=== PATIENT | female | born 1945 | race African-American/Black ===

== ENCOUNTER 2017-12-14 11:02 | Observation (INO) | payer MEDICARE ==
[2017-12-14 11:38] LABS: #Eosinphils 0.3 thou/uL (0.0-0.7); #Lymphocytes 1.9 thou/uL (1.20-3.40); #Monocytes 0.5 thou/uL (0.11-0.59); #Neutrophils 8.3 thou/uL (1.40-6.50); %Basophils 0.4 % (0.0-1.0); %Eosinophils 2.3 % (0.0-10.0); %Lymphocytes 17.3 % (21.0-51.0); %Monocytes 4.2 % (0.0-10.0); %Neutrophils 75.9 % (42.0-75.0); Hemoglobin 14.5 g/dL (12.0-16.0); Mean Corpuscular HGB CONC 33.8 g/dL (32.0-36.0); Mean Corpuscular Hemoglobin 29.9 pg (27.0-31.0); Mean Corpuscular Volume 88.4 fl (81.0-99.0); Mean Platelet Volume 8.5 fL (7.4-10.4); Platelet Count 251 thou/uL (130-400); RBC Distribution Width 13.2 % (11.5-14.5); Red Blood Cell (RBC) Count 4.84 mill/uL (4.20-5.40); White Blood Cell (WBC) Count 10.9 thou/uL (4.8-10.8)
[2017-12-14 11:56] LABS: ALT (SGPT) 16 U/L (8-55); AST (SGOT) 18 U/L (5-34); Albumin 4.5 g/dL (3.4-4.8); Alkaline Phosphatase 100 U/L (40-150); Anion Gap 15 mmol/L (10-20); BUN (Urea Nitrogen) 18 mg/dL (9.8-20.1); Bilirubin, Total 0.6 mg/dL (0.2-1.2); CK (CPK) 127 U/L (29-168); Calc. Creatinine Clearance 0 mL/min (70-130); Calcium 10.2 mg/dL (7.8-10.44); Carbon Dioxide 22 mmol/L (23-31); Chloride 104 mmol/L (98-107); Estimated GFR-MDRD 56; Globulin 4.3 g/dL (2.4-3.5); Glucose 121 mg/dL (83-110); Potassium 4.4 mmol/L (3.5-5.1); Protein, Total 8.8 g/dL (6.0-8.3); Sodium 137 mmol/L (136-145)
[2017-12-14 12:38] LABS: CKMB 1.1 ng/mL (0-6.6); Troponin I Less than 0.010 ng/mL (< 0.028)
[2017-12-14 12:43] LABS: Bilirubin Negative (Negative); Blood, Urine Negative (Negative); Clarity CLEAR (Clear); Glucose, Urine (Dipstick) Negative (Negative); Leukocyte Negative (Negative); Nitrite Negative (Negative); Protein, Urine (Dipstick) 100 mg/dL (Neg-Trace); Specific Gravity, Urine 1.012 (1.002-1.036); Urobilinogen 0.2 mg/dL (0.2-1.0); pH, Urine 6.5 (5.0-9.0)
--- NOTE | 2017-12-14 12:44 | RAD ---
RADIOGRAPH CHEST 1 VIEW: HISTORY: A 72-year-old female with weakness, nausea, and dizziness. FINDINGS: There is no air space density, pulmonary edema, or pneumothorax. The lateral costophrenic angles are sharp. IMPRESSION: No acute pulmonary findings. indio [] POS: MARGIE
[2017-12-14 12:48] LABS: Bacteria/HPF None Seen HPF (None Seen); Hyaline Casts/LPF 0-3 HYALINE CAST LPF (0-3 Hyaline); RBC/HPF 0-3 HPF (0-3); Squamous Epithelial 0-3 HPF (0-3); WBC/HPF None Seen HPF (0-3)
--- NOTE | 2017-12-14 12:55 | CT ---
CT BRAIN NONCONTRAST: HISTORY: A 72-year-old female with dizziness. FINDINGS: There is no midline shift or any other mass effect. There is no evidence of acute intracranial hemor rhage, large cortical infarct, obstructive hydrocephalus, or extraaxial fluid collection. The calvar ium is intact. IMPRESSION: No acute intracranial findings. indio [] POS: MARGIE
[2017-12-14] MEDS ORDERED: Meclizine HCl 25 MG TAB ONE (13:30)
--- NOTE | 2017-12-14 13:56 | RAD ---
THREE VIEWS OF THE RIGHT SHOULDER: INDICATION: Right AC joint tenderness and pain along the superior portions of the right shoulder. FINDINGS: There is mild AC joint arthrosis. No acute fracture is evident. Glenohumeral alignment is normal. Visualized right lung is clear. IMPRESSION: No acute osseous abnormality. POS: DYLAN
--- NOTE | 2017-12-14 14:16 | HP ---
PRIMARY CARE PHYSICIAN: Lon Mcghee M.D. REASON FOR ADMISSION: Dizziness/vertigo. HISTORY OF PRESENT ILLNESS: A 72-year-old -[place] female who has history of hypertension an d dyslipidemia who presented to emergency room with a complaint of dizziness. The patient reports th at for last 2 or 3 days, she is experiencing dizzy spell. She is not getting confidence in walking b ecause of fear of fall. The patient feels that everything surroundings spinning that is getting wors e with the position of head. She denies any tinnitus. She denies any ear pain. She denies any rece nt upper respiratory infection. She denies any fever or chills. She denies any palpitation. She di d not have any real syncope at this time, but she reports that on 09/27/2017, she was feeling dizzine ss and had episode of syncope and that is why she went to [facility] and she had one month monito ring, which was unremarkable. The patient intermittently gets dizzy spells since then. She denies a ny diplopia or blurred vision. She denies any chest pain, palpitations, orthopnea, PND or leg swelli ng. She does have arthritic pain. She denies any peripheral tingling and numbness sensation. Today in the emergency room, patient was exactly having similar symptoms. Patient was given IV fluid , but her symptoms did not improve. We are admitting this patient for observation to rule out any po sterior circulation, cerebrovascular accident or any cardiac problem. ALLERGIES: No known drug allergy. CURRENT HOME MEDICATIONS: Albuterol 2 puffs q.6 hourly p.r.n., allopurinol 100 mg p.o. daily, amlodi pine 10 mg p.o. daily, Lipitor 40 mg p.o. daily, losartan 50 mg p.o. daily, oxybutynin 5 mg twice kishore ly, Tylenol p.r.n. REVIEW OF SYSTEMS: The following complete review of systems was negative, unless otherwise mentioned in the HPI or below: Constitutional: Weight loss or gain, ability to conduct usual activities. Skin: Rash, itching. Eyes: Double vision, pain. ENT/Mouth: Nose bleeding, neck stiffness, pain, tenderness. Cardiovascular: Palpitations, dyspnea on exertion, orthopnea. Respiratory: Shortness of breath, wheezing, cough, hemoptysis, fever or night sweats. Gastrointestinal: Poor appetite, abdominal pain, heartburn, nausea, vomiting, constipation, or diarr hea. Genitourinary: Urgency, frequency, dysuria, nocturia. Musculoskeletal: Pain, swelling. Neurologic/Psychiatric: Anxiety, depression. Allergy/Immunologic: Skin rash, bleeding tendency. Please see my HPI for pertinent positive and negative. All other review of systems reviewed and nega tive except as mentioned in the HPI. PAST MEDICAL HISTORY: Hypertension, dyslipidemia, gout, asthma, overactive bladder. PAST SURGICAL HISTORY: Reviewed and negative. PAST PSYCHIATRIC HISTORY: Reviewed and negative. FAMILY HISTORY: No strong family history of premature coronary artery disease, stroke or cancer. EMERGENCY ROOM COURSE: Patient is given IV fluid. SOCIAL HISTORY: Patient is . She lives at home with her . No history of tobacco, alc ohol or illicit drug abuse. PHYSICAL EXAMINATION: VITAL SIGNS: On arrival, blood pressure 194/90, pulse 69, respiratory rate 16, temperature 98.1, sat uration 97% on room air, and weight 104.3 kilograms. GENERAL: The patient is currently alert, awake, no obvious acute distress. HEAD: Normocephalic, atraumatic. EYES: Pupils round, reactive to light. Extraocular muscle intact. ENT: Oropharynx within normal limits. Moist mucous membranes. No oral lesion, no pharyngeal erythe ma, no exudate. NECK: Supple, no JVD, no thyromegaly, no carotid bruit, no jugular venous distention. LUNGS: Clear to auscultation without any rhonchi or rales. CARDIAC: S1 and S2 regular without any murmur. ABDOMEN: Soft, bowel sounds present, nontender, nondistended. No organomegaly, no mass, no suprapub ic tenderness. BACK: Examination unremarkable, no CVA tenderness. EXTREMITIES: Upper extremity passive movements of all joints are normal. Lower extremities: No toma ma. Good peripheral pulsation. SKIN: No skin rash. HEMATOLOGICAL SYSTEM: No lymphadenopathy. PSYCHIATRIC: Normal affect. NEUROLOGIC: Patient is alert and oriented x3. Cranial nerves II-XII intact. Motor and sensation wi thin normal limit. No cerebellar sign. Plantar bilateral flexor. Gait unable to assess. SIGNIFICANT LABORATORY DATA AND IMAGING DATA: 1. CBC: WBC 10.9, hemoglobin 14.5, platelet 251. 2. BMP: Sodium 137, potassium 4.4, chloride 104, carbon dioxide 22, anion gap 15, BUN 18, creatinin e 1.16, glucose 121, calcium 10.2. 3. LFT: AST 18, ALT 16, alkaline phosphatase 100, albumin 4.5, CK 127, CK-MB 1.1, troponin I less t schaffer 0.010. Urinalysis normal. 4. Chest x-ray based on my review, no acute cardiopulmonary process. 5. CT brain based on my review, no acute intracranial process. 6. Shoulder x-ray based on my review, arthritic changes. ASSESSMENT AND PLAN/IMPRESSION: 1. Dizziness/vertigo. Differential diagnosis is benign positional vertigo unlikely to be vestibular labyrinthitis, most likely related with peripheral etiology, but central etiology cannot be entirely excluded. We need to also rule out any cardiac arrhythmia as a part of workup for dizziness. We wi ll check orthostatic vitals. Most likely, this patient hypertension which is pretty much uncontrolle d that also contributes to her symptoms. We decided to keep this patient in hospital for observation . Symptomatically, we will treat her with Antivert. We will do cardiac monitoring for 24 hours. We will obtain MRI brain to rule out any posterior circulation territory infarct. We will continue asp irin 325 mg p.o. daily, amlodipine 10 mg p.o. daily, Lipitor 20 mg p.o. at bedtime, losartan 50 mg p. o. daily. We will use hydralazine on p.r.n. basis for blood pressure control. We will also consult PT for weight assessment. 2. Asthma. We will continue albuterol inhaler q.6 hourly p.r.n., currently stable. 3. Gout. Continue allopurinol 100 mg p.o. daily. 4. Hypertension. Continue amlodipine 10 mg p.o. daily, losartan 50 mg p.o. daily and use hydralazin e p.r.n. basis. 5. Dyslipidemia. Check lipid profile tomorrow and continue Lipitor 40 mg p.o. at bedtime. 6. Overactive bladder. Continue oxybutynin 5 mg twice daily. 7. Obesity. Dietary education given. Weight loss education given. Healthy lifestyle measures disc ussed with the patient. 8. Chronic kidney disease stage 3. We will monitor renal function. 9. Deep venous thrombosis prophylaxis not needed because we are expecting discharge in 24 hours. 10. Gastrointestinal prophylaxis, Pepcid 20 mg p.o. b.i.d. 11. Code status: The patient is FULL CODE. Patient's is surrogate decision maker. Disposition plan based on clinical course. We are expecting patient's stay in hospital 24-48 hours. Plan of care discussed with the patient and her bedside in the emergency room.
[2017-12-14 15:01] LABS: Troponin I 0.012 ng/mL (< 0.028)
[2017-12-14] MEDS ORDERED: Ondansetron HCl/PF 4 MG/2 ML Vial IVP PRN ×2 (15:11→15:14)
[2017-12-14] MEDS ORDERED: Ondansetron ODT 4 MG TAB SL PRN (15:11)
[2017-12-14] MEDS ORDERED: Senokot 8.6 MG TAB PO PRN (15:14)
[2017-12-14] MEDS ORDERED: Eucerin (Mineral Oil/Petrolatum,White) 30 gm Jar TOP PRN (15:14)
[2017-12-14] MEDS ORDERED: Sodium Chloride 0.65% Nasal 44 ML BOT EA NARE PRN (15:14)
[2017-12-14] MEDS ORDERED: Milk Of Magnesia 30 ML UDCUP PO PRN (15:14)
[2017-12-14] MEDS ORDERED: Diabetic Tussin 200 MG/10 ML UDCUP PO PRN (15:14)
[2017-12-14] MEDS ORDERED: Artificial Tear Sol 15 ML BOT EA EYE PRN (15:14)
[2017-12-14] MEDS ORDERED: hydrALAZINE 20 MG/ML VIAL SLOW IVP PRN (15:14)
[2017-12-14] MEDS ORDERED: Acetaminophen 325 MG TAB PO PRN (15:14)
[2017-12-14] MEDS ORDERED: HYDROcodone/Acetaminophen 5/325 mg Tablet PO PRN (15:14)
[2017-12-14] MEDS ORDERED: Loperamide HCl 2 MG CAP PO PRN (15:14)
[2017-12-14] MEDS ORDERED: Chloraseptic Spray 180 ml Bottle PO PRN (15:14)
[2017-12-14] MEDS ORDERED: Ondansetron ODT 4 MG TAB PO PRN (15:14)
[2017-12-14] MEDS ORDERED: Zolpidem Tartrate 5 MG TAB PO PRN (15:14)
[2017-12-14] MEDS: Albuterol Sulfate 2.5 mg/3 ml Neb NEB PRN ×2 (15:51→22:32)
[2017-12-14 16:12] VITALS: BMI 38.9
[2017-12-14] MEDS: Sodium Chloride 0.9% 1,000 ML IV SCH (16:39)
[2017-12-14 18:47] LABS: Troponin I Less than 0.010 ng/mL (< 0.028)
[2017-12-14] MEDS ORDERED: Atorvastatin Calcium 40 MG TAB PO SCH (21:00)
[2017-12-14] MEDS: Famotidine 20 MG TAB PO SCH (21:46)
[2017-12-14] MEDS: Oxybutynin 5 MG TAB PO SCH (21:47)
[2017-12-14] MEDS: Meclizine HCl 25 MG TAB PO PRN (22:44)
[2017-12-15] MEDS: Sodium Chloride 0.9% 1,000 ML IV SCH ×2 (03:42→06:02)
[2017-12-15] MEDS: Albuterol Sulfate 2.5 mg/3 ml Neb NEB PRN ×2 (07:02→14:22)
[2017-12-15] MEDS ORDERED: Amlodipine 10 MG TAB PO SCH (09:00)
[2017-12-15] MEDS ORDERED: Losartan 25 MG TAB PO SCH (09:00)
[2017-12-15] MEDS ORDERED: Allopurinol 100 MG TAB PO SCH (09:00)
[2017-12-15] MEDS: Famotidine 20 MG TAB PO SCH (09:08)
[2017-12-15] MEDS: Oxybutynin 5 MG TAB PO SCH (09:08)
[2017-12-15] MEDS: Meclizine HCl 25 MG TAB PO PRN (09:08)
--- NOTE | 2017-12-15 10:06 | PDOC.PN ---
- Subjective Encounter Start Date: 12/15/17 Encounter Start Time: 07:20 -: old records requested/rev Patient seen and examined. No new complaints. No overnight events - Objective Resuscitation Status: Resuscitation Status FULL:Full Resuscitation MAR Reviewed: Yes Vital Signs & Weight: Vital Signs (12 hours) Temp Pulse Resp BP BP Pulse Ox 12/15/17 09:08 56 L 113/63 12/15/17 08:05 97.8 F 56 L 20 12/15/17 07:49 97.8 F 56 L 20 113/63 95 12/15/17 07:02 64 16 12/15/17 04:05 97.8 F 60 18 116/78 97 12/15/17 00:05 98.3 F 80 18 146/89 H 96 12/14/17 22:32 22 H 96 12/14/17 22:28 95 Weight Weight 199 lb 8 oz I&O: 12/14/17 12/15/17 12/16/17 06:59 06:59 06:59 Intake Total 2055.5 Output Total 200 Balance 1855.5 Result Diagrams: 12/14/17 11:23 12/14/17 11:23 Radiology Reviewed by me: Yes (carotid us) EKG Reviewed by me: Yes (nsr) Phys Exam - Physical Examination Constitutional: NAD HEENT: PERRLA, moist MMs, sclera anicteric Neck: no JVD, supple Respiratory: no wheezing, no rales, no rhonchi Cardiovascular: RRR, no significant murmur, no rub Gastrointestinal: soft, non-tender, no distention, positive bowel sounds Musculoskeletal: no edema, pulses present Neurological: non-focal, normal sensation, moves all 4 limbs Lymphatic: no nodes Psychiatric: normal affect, A&O x 3 Skin: no rash, normal turgor Dx/Plan (1) Dizziness Code(s): R42 - DIZZINESS AND GIDDINESS Status: Acute (2) Asthma Code(s): J45.909 - UNSPECIFIED ASTHMA, UNCOMPLICATED Status: Chronic (3) Dyslipidemia Code(s): E78.5 - HYPERLIPIDEMIA, UNSPECIFIED Status: Chronic (4) Hypertension Code(s): I10 - ESSENTIAL (PRIMARY) HYPERTENSION Status: Chronic (5) Obesity (BMI 30-39.9) Code(s): E66.9 - OBESITY, UNSPECIFIED Status: Chronic - Plan cont current plan of care, plan discussed w/ family, PT/OT * MRI and echo pending * if both test unremarkable, will consider discharge later today * medication reviewed as below * Symptomatic treatment. Review of Systems - Review of Systems Eyes: negative: Pain, Vision Change, Conjunctivae Inflammation, Eyelid Inflammation, Redness, Other ENT: negative: Ear Pain, Ear Discharge, Nose Pain, Nose Discharge, Nose Congestion, Mouth Pain, Mouth Swelling, Throat Pain, Throat Swelling, Other Respiratory: negative: Cough, Dry, Shortness of Breath, Hemoptysis, SOB with Excertion, Pleuritic Pain, Sputum, Wheezing Cardiovascular: negative: chest pain, palpitations, orthopnea, paroxysmal nocturnal dyspnea, edema, light headedness, other Gastrointestinal: negative: Nausea, Vomiting, Abdominal Pain, Diarrhea, Constipation, Melena, Hematochezia, Other Genitourinary: negative: Dysuria, Frequency, Incontinence, Hematuria, Retention , Other Musculoskeletal: negative: Neck Pain, Shoulder Pain, Arm Pain, Back Pain, Hand Pain, Leg Pain, Foot Pain, Other - Medications/Allergies Allergies/Adverse Reactions: Allergies Allergy/AdvReac Type Severity Reaction Status Date / Time No Known Allergies Allergy Verified 12/14/17 15:29 Medications: Current Medications Acetaminophen (Tylenol) 650 mg PO Q4H PRN PRN Reason: Headache/Fever or Pain Hydrocodone Bitart/Acetaminophen ([place] 5/325) 1 tab PO Q4H PRN PRN Reason: Moderate Pain (4-6) Last Admin: 12/14/17 22:44 Dose: 1 tab Albuterol Sulfate (Ventolin) 2.5 mg NEB [id number] PRN PRN Reason: Wheezing Last Admin: 12/15/17 07:02 Dose: 2.5 mg Allopurinol (Zyloprim) 100 mg PO DAILY COUNT INCLUDES THE [facility] Last Admin: 12/15/17 09:08 Dose: 100 mg Amlodipine Besylate (Norvasc) 10 mg PO DAILY COUNT INCLUDES THE [facility] Last Admin: 12/15/17 09:08 Dose: 10 mg Artificial Tears (Tears Renewed 15ml Bottle) 0 drop EA EYE PRN PRN PRN Reason: Dry Eyes Atorvastatin Calcium (Lipitor) 40 mg PO HS COUNT INCLUDES THE [facility] Last Admin: 12/14/17 21:46 Dose: 40 mg Famotidine (Pepcid) 20 mg PO BID COUNT INCLUDES THE [facility] Last Admin: 12/15/17 09:08 Dose: 20 mg Guaifenesin (Robitussin Sf) 200 mg PO Q4H PRN PRN Reason: Cough Hydralazine HCl (Apresoline) 10 mg SLOW IVP Q4H PRN PRN Reason: Systolic BP > 180 Last Admin: 12/14/17 21:47 Dose: 10 mg Loperamide HCl (Imodium) 2 mg PO PRN PRN PRN Reason: Diarrhea/Loose Stools Losartan Potassium (Cozaar) 50 mg PO DAILY COUNT INCLUDES THE [facility] Last Admin: 12/15/17 09:08 Dose: 50 mg Magnesium Hydroxide (Milk Of Magnesium) 30 ml PO DAILYPRN PRN PRN Reason: Constipation Meclizine HCl (Antivert) 25 mg PO Q8H PRN PRN Reason: Dizziness Last Admin: 12/15/17 09:08 Dose: 25 mg Mineral Oil/White Petrolatum (Eucerin Cream) 0 gm TOP BIDPRN PRN PRN Reason: Dry Skin Ondansetron HCl (Zofran Odt) 4 mg PO Q6H PRN PRN Reason: Nausea/Vomiting Ondansetron HCl (Zofran) 4 mg IVP Q6H PRN PRN Reason: Nausea/Vomiting Last Admin: 12/14/17 18:03 Dose: 4 mg Oxybutynin Chloride (Ditropan) 5 mg PO BID COUNT INCLUDES THE [facility] Last Admin: 12/15/17 09:08 Dose: 5 mg Phenol (Chloraseptic Orange 180 Ml Bot) 0 ml PO PRN PRN PRN Reason: Sore Throat Senna (Senokot) 2 tab PO HSPRN PRN PRN Reason: Constipation Sodium Chloride ([place] Nasal Orange 0.65%) 0 ml EA NARE QIDPRN PRN PRN Reason: Nasal Congestion Zolpidem Tartrate (Ambien) 5 mg PO HSPRN PRN PRN Reason: Insomnia
[2017-12-15 11:49] VITALS: TEMP 97.9
--- NOTE | 2017-12-15 11:51 | DIS ---
PRIMARY CARE PHYSICIAN: Dr. Lon Mcghee DATE OF ADMISSION: 12/14/2017 DATE OF DISCHARGE: 12/15/2017 DISCHARGE DISPOSITION: Home. PRIMARY DISCHARGE DIAGNOSES: 1. Dizziness/vertigo, suspecting from benign positional vertigo/orthostatic hypotension. 2. Labile blood pressure. SECONDARY DISCHARGE DIAGNOSES: Hypertension, obesity, dyslipidemia, asthma. PRIMARY PROCEDURE/OPERATION: None. RADIOLOGICAL INVESTIGATION: Chest x-ray normal. CT brain normal. Shoulder x-ray normal. SIGNIFICANT LABS: WBC 10.9, hemoglobin 14.5, platelet 251. Sodium 137, potassium 4.4, BUN 18, creat inine 1.16, calcium 10.2. LFT normal. Cardiac enzymes negative x3. Urinalysis normal. Urine cultu re negative. DISCHARGE MEDICATIONS: Allopurinol 100 mg p.o. daily, amlodipine 10 mg p.o. daily, Lipitor 20 mg p.o . daily, losartan 50 mg p.o. daily, Antivert 25 mg p.o. q.8h. p.r.n., Ditropan 5 mg p.o. b.i.d., Vent rosey HFA 2 puffs q.6 hourly p.r.n. CONTRAINDICATIONS: None. CODE STATUS: FULL CODE. INPATIENT CONSULTANTS: None. ALLERGIES: No known drug allergy. DISCHARGE PLAN: Post hospital, the patient will follow up with primary care physician in 1 week. HOSPITAL COURSE: A 72-year-old female who was admitted by me for dizziness. The patient's descripti on was atypical. She had full workup for cardiac etiology recently and it was ruled out. This patie nt's description was worrisome for benign positional vertigo as well. We kept her in the hospital fo r observation. We treated her with Antivert with improvement. We are still waiting for MRI and echo cardiography report, but if this test is normal, then the patient can be discharged home. At this po int, our main clinical impression for her dizziness is benign positional vertigo versus orthostatic h ypotension. She does labile hypertension. The patient is seen and examined at bedside today. Plan of care discussed with the family member. Please see my progress note from today for further detail.
--- NOTE | 2017-12-15 14:15 | MRI ---
BRAIN MRI NONCONTRAST: INDICATION: New-onset dizziness. FINDINGS: There is no evidence of acute territorial infarction, intracranial mass effect, midline shift, or mackenzie triculomegaly. No hemorrhagic susceptibility artifact is seen intracranially. There are no signific ant signal abnormalities of the brain parenchyma. IMPRESSION: No acute intracranial abnormality. POS: MARGIE
[2017-12-16 14:05] VITALS: BP 136/66
== END 2017-12-15 15:53 | disposition home or self-care (01) ==
LOC: ERS 11:02 → 2SE 13:18
PROVIDERS: ADMIT Internal Medicine; ATTEND Internal Medicine
DX: R42 Dizziness and giddiness (principal); R09.89 Other specified symptoms and signs involving the circulatory and respiratory systems; E78.5 Hyperlipidemia, unspecified; J45.909 Unspecified asthma, uncomplicated; M10.9 Gout, unspecified; N32.81 Overactive bladder; I12.9 Hypertensive chronic kidney disease with stage 1 through stage 4 chronic kidney disease, or unspecified chronic kidney disease; N18.3 Chronic kidney disease, stage 3 (moderate); E66.9 Obesity, unspecified; Z68.39 Body mass index [BMI] 39.0-39.9, adult; Z79.899 Other long term (current) drug therapy
CPT/HCPCS: 51701; 70450; 70551; 71045; 73030; 80053; 82550; 82553; 84484 ×2; 85025; 87086; 93005; 93306; 94640 ×3; 94760; 96360; 96361 ×2; 96375; 97116; 97139 ×2; 99285; G0378; G8978; G8979; G8980; 36415; 81003; 81015; A4353; J0360; J2405; J7611

== ENCOUNTER 2018-09-28 14:13 | Outpatient (CLI) | payer MEDICARE | END 2018-09-28 14:14 | disposition home or self-care (01) | LOC: BICMAMMO 14:13 | PROVIDERS: ATTEND Family Medicine | DX: Z12.31 Encounter for screening mammogram for malignant neoplasm of breast (principal); R92.1 Mammographic calcification found on diagnostic imaging of breast; Z80.3 Family history of malignant neoplasm of breast | CPT/HCPCS: 77063; 77067 ==

== ENCOUNTER 2021-03-08 14:51 | Outpatient (CLI) | payer MEDICARE | END 2021-03-08 14:52 | disposition home or self-care (01) | LOC: BICMAMMO 14:51 | PROVIDERS: ATTEND Family Medicine | DX: Z12.31 Encounter for screening mammogram for malignant neoplasm of breast (principal); Z80.3 Family history of malignant neoplasm of breast | CPT/HCPCS: 77063; 77067 ==

== ENCOUNTER 2023-10-17 14:57 | Outpatient (CLI) | payer MEDICARE | END 2023-10-17 14:58 | disposition home or self-care (01) | LOC: RAD 14:57 | PROVIDERS: ATTEND Family Medicine | DX: M17.11 Unilateral primary osteoarthritis, right knee (principal) ==